=== PATIENT | female | born 2000 | race Caucasian/White ===

== ENCOUNTER 2025-09-30 11:23 | Day surgery (SDC) | payer OTHER ==
[2025-09-30 12:10] VITALS: BMI 30.4
[2025-09-30 13:00] LABS: Fetal Membranes Rupture No Membranes Rupture (No Rupture)
[2025-09-30 14:05] LABS: Fetal Membranes Rupture No Membranes Rupture (No Rupture)
== END 2025-09-30 14:58 | disposition home or self-care (01) ==
LOC: CSHLD/OP 11:23
PROVIDERS: ATTEND Obstetrics & Gynecology
DX: Z03.71 Encounter for suspected problem with amniotic cavity and membrane ruled out (principal)
CPT/HCPCS: 84112; 99283

== ENCOUNTER 2025-10-10 18:00 | Inpatient (IN) | payer OTHER ==
[~2025-10-10 18:00] MED LIST: Bupivacaine 0.25% HCL 30 ML VIAL ONE; Bupivacaine/Epinephrine 0.25% 30 ML VIAL ONE
[2025-10-10] MEDS ORDERED: Oxytocin 30 units/NS 500 ML 500 ML IV SCH (19:53)
[2025-10-10] MEDS ORDERED: Lidocaine 1% (PF) 30 ML VIAL SC PRN (19:53)
[2025-10-10] MEDS ORDERED: HYDROcodone/Acetaminophen 5/325 mg Tablet PO PRN ×2 (19:53)
[2025-10-10] MEDS ORDERED: hydrALAZINE 20 MG/ML VIAL SLOW IVP PRN (19:53)
[2025-10-10] MEDS ORDERED: Ibuprofen 800 MG TAB PO PRN (19:53)
[2025-10-10 19:58] VITALS: BMI 31.4
[2025-10-10 20:34] LABS: Hematocrit 30.7 % (34.9-44.5); Hemoglobin 10.5 g/dL (12.0-15.5); Mean Corpuscular Hemoglobin 29.4 pg (27.0-33.0); Mean Corpuscular Volume 86.0 fL (81.6-98.3); Platelet Count 152 10x3/uL (150-450); Red Blood Cell (RBC) Count 3.57 10x6/uL (3.90-5.03); White Blood Cell (WBC) Count 12.08 10x3/uL (3.5-10.5)
[2025-10-10 21:20] LABS: Syphilis Antibody Index 0.05 S/CO (<1.00 Non-Reactive)
[2025-10-10 21:23] LABS: Hep B Surf Ag - L&D Non-Reactive S/CO (NonReactive)
[2025-10-11] MEDS: Oxytocin 30 units/NS 500 ML 500 ML IV SCH (00:23)
[2025-10-11] MEDS: Ondansetron PF 4 MG/2 ML Vial IVP PRN (07:42)
[2025-10-11] MEDS: fentaNYL/Ropivacaine Epidural 100 ML ONE (09:17)
[2025-10-11] MEDS ORDERED: Acetaminophen 325 MG TAB PO PRN (09:31)
[2025-10-11] MEDS ORDERED: diphenhydrAMINE 50 MG/ML VIAL IVP PRN (09:31)
[2025-10-11] MEDS ORDERED: Ondansetron PF 4 MG/2 ML Vial IVP PRN ×2 (09:31→16:31)
[2025-10-11] MEDS ORDERED: Communication Order-Pharmacy FS SCH (09:45)
[2025-10-11] MEDS ORDERED: fentaNYL 2 mcg/Ropivacaine 0.2% Epidural 100 ML CADD EPIDURAL SCH (09:45)
[2025-10-11] MEDS: Methylergonovine 0.2 MG/ML VIAL ONE (13:55)
[2025-10-11] MEDS ORDERED: Bisacodyl 10 MG SUPP PR PRN (16:31)
[2025-10-11] MEDS ORDERED: Preparation H Ointment 28 GM TUBE PR PRN (16:31)
[2025-10-11] MEDS ORDERED: diphenhydrAMINE 25 MG CAP PO PRN (16:31)
[2025-10-11] MEDS ORDERED: Benzocaine-Menthol 82.5 ML CAN TOP PRN (16:31)
[2025-10-11] MEDS ORDERED: Milk Of Magnesia 30 ML UDCUP PO PRN (16:31)
[2025-10-11] MEDS ORDERED: hydrALAZINE 20 MG/ML VIAL SLOW IVP PRN (16:31)
[2025-10-11] MEDS ORDERED: HYDROcodone/Acetaminophen 5/325 mg Tablet PO PRN ×2 (16:31)
[2025-10-11] MEDS ORDERED: Lanolin Ointment 7 GM TUBE TOP PRN (16:31)
[2025-10-11] MEDS: Ibuprofen 800 MG TAB PO SCH (17:14)
[2025-10-11] MEDS: Ferrous Sulfate 325 MG TAB PO SCH (18:02)
[2025-10-12 11:23] VITALS: BP 125/88; TEMP 97.9
== END 2025-10-12 16:30 | disposition home or self-care (01) | DRG 807 ==
LOC: CSHLD 19:15 → CSHPP 10-11 16:00
PROVIDERS: ADMIT Obstetrics & Gynecology; ATTEND Obstetrics & Gynecology
PROC: 10907ZC Drainage of Amniotic Fluid, Therapeutic from Products of Conception, Via Natural or Artificial Opening (ICD-10-PCS; principal; 2025-10-11)
PROC: 10E0XZZ Delivery of Products of Conception, External Approach (ICD-10-PCS; 2025-10-11)
PROC: 0HQ9XZZ Repair Perineum Skin, External Approach (ICD-10-PCS; 2025-10-11)
DX: O70.0 First degree perineal laceration during delivery (principal); Z37.0 Single live birth; Z3A.39 39 weeks gestation of pregnancy; O69.89X0 Labor and delivery complicated by other cord complications, not applicable or unspecified
CPT/HCPCS: 36415; 51702; 85027; 86780; 86850; 86900; 86901; 87340; J0665; J2210; J2405; J2590; J3010; J7120